=== PATIENT | male | born 1975 | race Caucasian/White ===

== ENCOUNTER 2022-01-27 11:19 | Emergency (ER) | payer SELFPAY ==
[~2022-01-27] VITALS: Ht 162.6 cm; Wt 63.5 kg
[2022-01-27] MEDS ORDERED: CEPH500 PO (16:27)
[2022-01-27] MEDS ORDERED: Cyclobenzaprine5 MG PO (16:27)
[2022-01-27] MEDS ORDERED: IBUP400 PO (16:29)
== END 2022-01-27 16:32 | disposition home or self-care (01) ==
LOC: ER 11:19
DX: S01.02XA Laceration with foreign body of scalp, initial encounter (principal); S16.1XXA Strain of muscle, fascia and tendon at neck level, initial encounter; V29.99XA Rider (driver) (passenger) of other motorcycle injured in unspecified traffic accident, initial encounter; Z87.891 Personal history of nicotine dependence
CPT/HCPCS: 70450; 72125